=== PATIENT | male | born 1990 | race Caucasian/White ===

== ENCOUNTER 2019-12-25 08:34 | Emergency (ER) | payer OTHER, SELFPAY ==
--- NOTE | 2019-12-25 08:48 | ED.ABDPAIN ---
HPI - Abdominal Pain General Chief Complaint: Abdominal Pain Stated Complaint: abd pain x week, n/v Time Seen by Provider: 12/25/19 08:40 History of Present Illness HPI narrative: Epigastric pain for the past week. crescendo pattern. Usually worst first thing in the in the morning. Associated wiht vomiting. Reports h/o GERD currently untreated. Related Data Allergies Allergy/AdvReac Type Severity Reaction Status Date / Time erythromycin base Allergy Mild Hives Verified 12/25/19 09:01 Review of Systems Review of Systems: All systems reviewed & are unremarkable except as noted in HPI and below Constitutional: Constitutional: Denies fever(s) Cardiovascular: Cardiovascular: Denies chest pain Respiratory: Respiratory: Denies dyspnea Gastrointestinal: Gastrointestinal: Reports abdominal pain, Denies constipation, Denies diarrhea, Reports nausea and Reports vomiting Genitourinary: Genitourinary: Denies dysuria [facility] Social History Social History Alcohol intake: never Gender identity (if verbalized by the patient): Male Exam Const: General: healthy appearing, no acute distress and alert Orientation/consciousness: patient oriented x3 HENMT: Head: normal to inspection Neck: Neck: normal visual inspection and no lymphadenopathy Chest: Chest palpation & inspection: no tenderness Resp: Effort & Inspection: normal respiratory effort Auscultation: clear to auscultation bilaterally, no rales, no rhonchi and no wheezes Cardio: Jugular venous distension: no JVD Rate: regular rate Rhythm: regular rhythm Heart sounds: no murmurs GI: Inspection: non-distended GI Palp: Yes Soft to palpation and No Tenderness to palpation present (GI) Skin: General skin exam: normal color Neuro: General: patient oriented x3 and moves all extremities Speech: normal speech Extrem: General: no edema Psych: Appearance: well kempt Affect: normal affect Course Vital Signs Vital signs: Vital Signs Temperature 36.8 C 12/25/19 08:56 Pulse Rate 71 12/25/19 08:56 Respiratory Rate 16 12/25/19 08:56 Blood Pressure 129/70 12/25/19 08:56 Pulse Oximetry 98 12/25/19 08:56 Temperature 36.8 C 12/25/19 08:56 Pulse Rate 64 12/25/19 12:35 Respiratory Rate 18 12/25/19 12:35 Blood Pressure 146/88 H 12/25/19 12:44 Pulse Oximetry 98 12/25/19 12:35 MDM - Abdominal Pain MDM Narrative Medical decision making narrative: Feeling better after fluids and PPI. Will start PPI at home and have him follow-up. Medical Records Attestation: I reviewed the patient's medical records. Lab Data Attestation: I reviewed the patient's lab results. Result diagrams: 12/25/19 09:11 12/25/19 09:11 Labs: Lab Results 12/25/19 12/25/19 12/25/19 Range/Units 09:11 09:11 09:11 WBC 9.9 (4.5-10.0) K/mm3 RBC 5.49 (4.6-6.20) M/mm3 Hgb 16.2 (14.0-18.0) g/dL Hct 46.3 (42.0-52.0) % MCV 84.3 (80-100) fl MCH 29.5 (26-34) pg MCHC 35.0 (32-36) g/dl RDW 12.8 (11.5-14.5) % Plt Count 275 (150-375) k/mm3 MPV 9.6 (7.4-10.4) fl Immature Gran % (Auto) 0.5 (0-0.5) % Neut % (Auto) 63.8 (45.5-73.1) % Lymph % (Auto) 27.2 (18.3-44.2) % Burt % (Auto) 5.7 (2.6-8.5) % Eos % (Auto) 2.3 (0-4.4) % Baso % (Auto) 0.5 (0.2-1.2) % Lymph # (Auto) 2.68 (0.9-3.2) K/mm3 Burt # (Auto) 0.6 (0.1-0.6) K/mm3 Eos # (Auto) 0.2 (0-0.3) K/mm3 Baso # (Auto) 0.1 (0.0-0.1) K/mm3 Abs Immat Gran (auto) 0.05 H (0.00-0.031) K/mm3 Absolute Neuts (auto) 6.3 (1.3-6.7) K/mm3 Absolute Nucleated RBC 0.0 (0.0-0.012) K/mm3 Nucleated RBC % 0.0 (0.0-0.2) % Sodium 139 (137-145) mmol/L Potassium 4.3 (3.4-5.0) mmol/L Chloride 105 (98-107) mmol/L Carbon Dioxide 26 (22-30) mmol/L BUN 20 (9-20) mg/dL Creatinine 1.10 (0.7-1.3) mg/dL Estim Creat Clear Calc
[2019-12-25 08:56] VITALS: BP 129/70; PULSE 71; RESP 16; TEMP 36.8; O2SAT 98
[2019-12-25 09:20] LABS: Basophils Absolute Auto 0.1 K/mm3 (0.0-0.1); Basophils Percent Auto 0.5 % (0.2-1.2); Eosinophils Absolute Auto 0.2 K/mm3 (0-0.3); Eosinophils Percent Auto 2.3 % (0-4.4); Hematocrit 46.3 % (42.0-52.0); Hemoglobin 16.2 g/dL (14.0-18.0); Immature Granulocyte Absolute 0.05 K/mm3 (0.00-0.031); Immature Granulocyte Percent A 0.5 % (0-0.5); Lymphocytes Absolute Auto 2.68 K/mm3 (0.9-3.2); Lymphocytes Percent Auto 27.2 % (18.3-44.2); Mean Corpuscular Hemoglobin 29.5 pg (26-34); Mean Corpuscular Volume 84.3 fl (80-100); Mean Platelet Volume 9.6 fl (7.4-10.4); Monocytes Absolute Auto 0.6 K/mm3 (0.1-0.6); Monocytes Percent Auto 5.7 % (2.6-8.5); Neutrophils Absolute Auto 6.3 K/mm3 (1.3-6.7); Neutrophils Percent Auto 63.8 % (45.5-73.1); Platelet Count Result 275 k/mm3 (150-375); Red Blood Count 5.49 M/mm3 (4.6-6.20); Red Cell Distribution Width 12.8 % (11.5-14.5); White Blood Count 9.9 K/mm3 (4.5-10.0)
[2019-12-25 09:24] LABS: Add Urine Microscopic? NO; Appearance Urine Clear (Clear); Bilirubin Urine Negative (Negative); Blood Urine Negative (Negative); Color Urine Yellow (Yellow); Glucose Urine UA Negative (Negative); Ketones Urine Negative (Negative); Leukocyte Esterase Ur Negative LEU/UL (Negative); Nitrate Urine Negative (Negative); Protein Urine Negative (Negative); Specific Grav Ur 1.024 (1.001-1.035); Urobilinogen Urine Negative mg/dL (<2.0)
[2019-12-25 09:32] LABS: Alanine Aminotransferase 43 U/L (4-50); Albumin Level 4.7 g/dL (3.5-5.1); Alkaline Phosphatase 69 U/L (38-126); Aspartate Amino Transferase 38 U/L (17-59); Bilirubin,Total 1.1 mg/dL (0.2-1.3); Blood Urea Nitrogen 20 mg/dL (9-20); Calcium 9.6 mg/dL (8.4-10.2); Carbon Dioxide 26 mmol/L (22-30); Chloride 105 mmol/L (98-107); Estimated CRCL calculation 94 ml/min; Estimated Glomerular Filt Rate > 60; Glucose 101 mg/dL (75-110); Lipase 67 U/L (23-300); Potassium 4.3 mmol/L (3.4-5.0); Sodium 139 mmol/L (137-145)
[2019-12-25] MEDS: PANTOPRAZOLE SODIUM IV 40 MG VIAL IV PUSH (09:48)
[2019-12-25] MEDS: SODIUM CHLORIDE 0.9% IV 1,000 ML 999 ML IV CONT (09:48)
[2019-12-25 10:45] VITALS: BP 143/84; PULSE 74; RESP 18; O2SAT 99
[2019-12-25 12:35] VITALS: BP 146/88; PULSE 64; RESP 18; O2SAT 98
[2019-12-25 12:44] VITALS: BP 146/88
== END 2019-12-25 12:46 | disposition home or self-care (01) ==
PROVIDERS: Emergency Provider Emergency Medicine
DX: R10.13 Epigastric pain (principal)
CPT/HCPCS: 36415; 80053; 81003; 83690; 85025; 96361; 96374; 99284; C9113; J7030

== ENCOUNTER 2020-09-22 04:03 | Emergency (ER) | payer SELFPAY ==
[2020-09-22 04:07] VITALS: BP 132/73; PULSE 63; RESP 20; TEMP 36.1; O2SAT 96
[2020-09-22] MEDS: HYDROcodone/acetaminophen (*CRX) 5-325 MG TABLET 1 TAB PO (04:55)
[2020-09-22 05:14] LABS: Add Urine Microscopic? NO; Appearance Urine Clear (Clear); Bilirubin Urine Negative (Negative); Blood Urine Negative (Negative); Color Urine Yellow (Yellow); Glucose Urine UA Negative (Negative); Ketones Urine Negative (Negative); Leukocyte Esterase Ur Negative LEU/UL (Negative); Nitrate Urine Negative (Negative); Protein Urine Negative (Negative); Urobilinogen Urine Negative mg/dL (<2.0)
--- NOTE | 2020-09-22 05:44 | ED.BACK ---
HPI - Back Pain/Injury General Chief Complaint: Back Pain/Injury Stated Complaint: Lower back pain Time Seen by Provider: 09/22/20 04:39 Source: RN notes reviewed History of Present Illness HPI Narrative: Patient presents to emergency department from home for back pain. Patient states that he woke with sleep with pain in his left lower back. States that the pain is described as a tightness and does not radiate pain is worse with movement. States he did have one episode of nausea vomiting with the symptoms. States he took no medication for the pain. He denies any direct trauma or injury. Denies any fevers or chills chest pain shortness of breath abdominal pain or any other symptoms Related Data Allergies Allergy/AdvReac Type Severity Reaction Status Date / Time erythromycin base Allergy Mild Hives Verified 09/22/20 04:09 Review of Systems Review of Systems: Narrative: Gen.: Denies fevers or chills ENT: Denies congestion Respiratory: Denies shortness of breath or cough CV: Denies chest pain or palpitations GI: Denies abdominal pain rest 1 episode nausea vomiting denies burning, urgency, frequency or hematuria Musculoskeletal: See HPI Neuro: Denies numbness, tingling, weakness or focal weakness Skin: Denies rash Except as documented, all other systems reviewed and negative PMFSH Past Medical History Medical History (Updated 09/22/20 @ 05:46 by Sanya Pool DO) Patient denies significant medical history Social History Social History (Updated 09/22/20 @ 05:45 by Sanya Pool DO) Smoking status: Never smoker Alcohol intake: never Gender identity (if verbalized by the patient): Male Exam Narrative: Exam Narrative: APPEARANCE: No acute distress, nontoxic, resting in bed Eyes: EOMI HEENT: Normocephalic, atraumatic, CV: Regular rate and rhythm without murmur RESPIRATORY: No respiratory distress. Clear to auscultation bilaterally. Abdomen: Soft and nontender, no rebound or guarding MUSCULOSKELETAl: Moves all extremities, no clubbing cyanosis or edema Back: No midline lumbar tenderness to palpation or step-off, tender to palpation over left paravertebral muscles L2-4 , pain increased with forward flexion rotation of the torso NEURO: Awake and alert. Following commands, speech normal, no focal deficits, muscle strength 5 out of 5 bilateral lower extremities, bilateral patellar reflex 2+ SKIN:: Warm, dry. Normal Color no rash or lesions Course Course Emergency Course: Discussed with patient results of workup and diagnosis. Discussed need for follow-up with primary care, proper use of medication, and reasons to return to the emergency department. Patient understands and agrees to current treatment plan Vital Signs Vital signs: Vital Signs Temperature 97.0 F L 09/22/20 04:07 Pulse Rate 63 09/22/20 04:07 Respiratory Rate 20 09/22/20 04:07 Blood Pressure 132/73 09/22/20 04:07 Pulse Oximetry 96 09/22/20 04:07 Temperature 97.0 F L 09/22/20 04:07 Pulse Rate 63 09/22/20 04:07 Respiratory Rate 20 09/22/20 04:07 Blood Pressure 132/73 09/22/20 04:07 Pulse Oximetry 96 09/22/20 04:07 MDM - Back Pain/Injury MDM Narrative Medical decision making narrative: Patient?s pain is positional and localized to back without signs of cord compression or cauda equina. Normal nuerologic exams. No fever noted and no significant risk factors for osteomyelitis or spinal epidural abscess. No symptoms or signs to suggest pain is referred from abdominal or source. There are no pulsatile masses to exam. Patient ambulates with a steady gait and is felt to be up reasonable candidate for continued outpatient management Lab Data Labs: Lab Results 09/22/20 Range/Units 05:02 Urine Color Yellow (Yellow) Urine Appearance Clear (Clear) Urine pH 5.0 (5.0-9.0) Ur Specific [place] 1.020 (1.001-1.035) Urine Protein Negative (Negative) mg/dL Urine Glucose (UA) Negative (Nega
[2020-09-22 05:50] VITALS: BP 128/62; PULSE 66; RESP 18; O2SAT 97
== END 2020-09-22 05:50 | disposition home or self-care (01) ==
PROVIDERS: Emergency Provider Emergency Medicine; PCP Student in an Organized Health Care Education/Training Program
DX: M54.5 Low back pain (principal)
CPT/HCPCS: 81003; 99283; A9270

== ENCOUNTER → 2020-11-25 13:13 | Outpatient (CLI) | payer OTHER, SELFPAY ==
--- NOTE | ~2020-11-25 | US_ITS ---
EXAMINATION: US soft tissue head and neck EXAM DATE: 11/25/2020 13:54 INDICATION: Swollen lymph nodes. Palpable abnormality sides of neck. TECHNIQUE: Multiple grayscale and Doppler images of the symptomatic region were obtained (by a techno logist who performed the scan) and subsequently reviewed. There is no prior study for comparison. FINDINGS: Scanning in the area of patient's concern upper aspects of neck laterally demonstrates normal appeari ng subcutaneous fat and under spine sternocleidomastoid. No cervical lymphadenopathy in the region. IMPRESSION: 1. Unremarkable ultrasound exam. Reviewed, dictated and finalized at location B.
--- NOTE | ~2020-11-25 | US_ITS ---
US scrotum doppler INDICATION: Left testicular pain TECHNIQUE: Testicular sonogram utilizing grayscale and color Doppler FINDINGS: The testes are normal in size and appearance. No focal lesions are seen. The right testes measures 4.4 x 2.6 x 3.9 cm centimeters, and the left testis measures 4.2 x 2.4 x 2.9 cm cm. There is normal vascular flow to both testes. There is a 2 mm right epididymal cysts. There is a small right hydrocele. There is a small left hydrocele. There is a left varicocele. IMPRESSION: 1. Left varicocele. 2: Small bilateral hydroceles. Reviewed, dictated and finalized at location A.
== END ==
PROVIDERS: PCP Student in an Organized Health Care Education/Training Program; Visit Provider Student in an Organized Health Care Education/Training Program
DX: R59.9 Enlarged lymph nodes, unspecified (principal); N50.819 Testicular pain, unspecified
CPT/HCPCS: 76536; 76870; 93976

== ENCOUNTER 2020-12-19 09:12 | Emergency (ER) | payer OTHER, SELFPAY ==
--- NOTE | ~2020-12-19 | XR_ITS ---
XR chest 2V DATE: 12/19/2020 09:39 INDICATION: Shortness of breath. Anxiety/panic attack TECHNIQUE: PA and lateral views COMPARISON: 02/25/2016 PA and lateral chest FINDINGS: Normal heart size. No hilar or mediastinal enlargement. The lungs appear normally inflated and clear of infiltrate or consolidation. No pleural effusion or pulmonary vascular congestion or pne umothorax. Included skeletal structures appear normal. IMPRESSION: Negative chest Reviewed, dictated and finalized at location A. IMPRESSION: Negative chest
[2020-12-19 09:23] VITALS: BP 152/95; PULSE 80; RESP 16; TEMP 36.6; O2SAT 100
--- NOTE | 2020-12-19 09:27 | ECG_ITS ---
Measurements Intervals [place] Rate: 85 P: 59 VT: 116 QRS: 67 QRSD: 89 T: 39 QT: 371 QTc: 444 Interpretive Statements SINUS RHYTHM WITH SHORT VT INTERVAL VOLTAGE CRITERIA FOR LVH ST ELEVATION IN ANTEROLAT/HIGH LAT LEADS- PROBABLY EARLY REPOLARIZATION ABNORMALITY BORDERLINE ST-T WAVE ABNORMALITY- INFERIOR LEADS BASELINE ARTIFACT- V1 BORDERLINE ECG Electronically Signed On 12-19-2020 10:09:01 CDT by Bob Cuadra D.O.
[2020-12-19] MEDS: ALPRAZolam (*CRX) 0.25 MG TABLET 0.5 MG PO (10:00)
--- NOTE | 2020-12-19 10:27 | ED.ANXIETY ---
HPI - Anxiety General Chief Complaint: Anxiety Stated Complaint: was taking antibiotics, it's causing me anxiety Time Seen by Provider: 12/19/20 09:27 History of Present Illness HPI narrative: Patient is a 30-year-old male who presents ER with chest tightness. Patient has history of anxiety for which she takes alprazolam. Reports tightness began earlier today and is making him short of breath. No exertional pain.. 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 He is supposed to take it twice a day but has been taking it daily instead. He was referred here by his PCP. Denies fevers or chills or sweats. No testicle pain or dysuria or flank pain. Has had similar symptoms like this when he has had a panic attack in the past. Related Data Home Medications Medication Instructions Recorded Confirmed alprazolam 0.5 mg PO PRN 12/19/20 12/19/20 Allergies Allergy/AdvReac Type Severity Reaction Status Date / Time erythromycin base Allergy Mild Hives Verified 12/19/20 09:43 Review of Systems Review of Systems: All systems reviewed & are unremarkable except as noted in HPI and below Constitutional: Constitutional: Denies chills, Denies fever(s) and Denies weakness ENT: Denies nasal congestion Cardiovascular: Cardiovascular: Reports chest pain, Reports rapid heart rate and Denies radiating jaw, neck or arm pain Respiratory: Respiratory: Denies cough, Reports dyspnea and Denies wheezing Gastrointestinal: Gastrointestinal: Denies nausea and Denies vomiting PMFSH Past Medical History Medical History (Updated 12/19/20 @ 10:32 by David Feldman MD) Anxiety History of benign testicular tumor Social History Social History (Updated 09/22/20 @ 05:45 by Sanya Pool DO) Smoking status: Never smoker Alcohol intake: never Gender identity (if verbalized by the patient): Male Exam Narrative: Exam Narrative: GENERAL: Anxious-appearing, well-nourished, and in no acute distress. HEAD: Normocephalic, atraumatic. CHEST: Clear to auscultation. No respiratory distress. HEART: Regular rate and rhythm. Normal peripheral pulses. ABDOMEN: Soft, nontender, nondistended. EXTREMITIES: Normal range of motion. No edema. SKIN: Warm, dry, no rash. NEURO: Alert and oriented x3. PSYCH: Anxious mood with normal thought content. Course Course Emergency Course: Patient feels much better with Xanax. Reports has [place] father dying 7 months ago. He has been placed on antidepressant as well as anxiety medication. Discussed that seeing a therapist as well may benefit him as he finds bottling up his emotions tends to make things worse Vital Signs Vital signs: Vital Signs Temperature 97.9 F 12/19/20 09:23 Pulse Rate 80 12/19/20 09:23 Respiratory Rate 16 12/19/20 09:23 Blood Pressure 152/95 H 12/19/20 09:23 Pulse Oximetry 100 12/19/20 09:23 Temperature 97.9 F 12/19/20 09:23 Pulse Rate 80 12/19/20 09:23 Respiratory Rate 16 12/19/20 09:23 Blood Pressure 152/95 H 12/19/20 09:23 Pulse Oximetry 100 12/19/20 09:23 MDM - Anxiety Imaging Data Radiologist's impression: ITS Impressions Chest X-Ray 12/19/20 09:41 IMPRESSION: Negative chest ECG Data EKG #1: ECG completion date: 12/19/20 ECG completion time: 09:56 EKG Interpretation: normal rate (85), sinus rhythm, no ectopy, non-specific ST changes, normal QRS, normal QT, NL axis and other (lvh) Discharge Plan Discharge Clinical Impression: Acute anxiety Patient Disposition: Home, Self-Care Condition: Stable Instructions: Anxiety (ED) Additional Instructions: Return to the ER if you have recurrent chest pain or shortness of breath, you lose consciousness, you cannot keep down food or water, you have additional concerns. Talking with your primary care physician about your anxiety may lead them to add
[2020-12-19 10:55] VITALS: BP 138/88; PULSE 78; RESP 20; O2SAT 100
== END 2020-12-19 11:00 | disposition home or self-care (01) ==
PROVIDERS: Emergency Provider Emergency Medicine; PCP Student in an Organized Health Care Education/Training Program
DX: F41.9 Anxiety disorder, unspecified (principal); R94.31 Abnormal electrocardiogram [ECG] [EKG]
CPT/HCPCS: 71046; 93005; 99283; A9270

== ENCOUNTER 2021-08-10 10:15 | Emergency (ER) | payer SELFPAY ==
--- NOTE | ~2021-08-10 | XR_ITS ---
XR finger 4th RT min 2V 08/10/2021 11:05 Indication: Right fourth finger pain after injury Procedure: 3 views right fourth finger Comparison: No prior studies for comparison. Findings: There are linear foreign bodies in the soft tissues overlying the tuft of the distal phalan x. No underlying fracture or traumatic malalignment. Mild diffuse soft tissue swelling. Impression: 1: No acute fracture. 2: Linear soft tissue foreign bodies distal to the distal phalanx. Reviewed, dictated and finalized at location A. [employer] Impression: 1: No acute fracture. 2: Linear soft tissue foreign bodies distal to the distal phalanx.
[2021-08-10 10:36] VITALS: BP 129/90; PULSE 68; RESP 18; TEMP 36.3; O2SAT 100
--- NOTE | 2021-08-10 11:20 | ED.UPPEXIN ---
HPI - Extremity Injury (Upper) General Chief Complaint: Extremity Injury, Upper Stated Complaint: finger pain Time Seen by Provider: 08/10/21 10:33 History of Present Illness HPI narrative: 31-year-old male presents the emergency room with complaints of right fourth digit finger pain status post mechanical fall down 4 stairs. States injury occurred yesterday, noticed the finger was dislocated and was able to reduce it. Finger pain is worse with movement. Has not taking any Tylenol or ibuprofen for discomfort. Upon arrival patient's finger is splinted. Related Data Home Medications Medication Instructions Recorded Confirmed alprazolam 0.5 mg PO PRN 12/19/20 12/19/20 Allergies Allergy/AdvReac Type Severity Reaction Status Date / Time erythromycin base Allergy Mild Hives Verified 12/19/20 09:43 Review of Systems Review of Systems: CONSTITUTIONAL: Denies fever, chills, or sweats. EYES: Denies visual changes, redness, or discharge. ENT: Denies rhinorrhea, congestion, sore throat, or otalgia. CARDIOVASCULAR: Denies chest pain, palpitations, or edema. RESPIRATORY: Denies cough or dyspnea. GASTROINTESTINAL: Denies abdominal pain, nausea, vomiting, or diarrhea. GENITOURINARY: Denies dysuria or hematuria. SKIN: Denies rash or itching. MUSCULOSKELETAL: Denies back pain, joint pain, or myalgia. Right fourth finger pain NEUROLOGIC: Denies headache, numbness, dizziness, or weakness. PSYCHIATRIC: Denies anxiety or depression. [facility] Past Medical History Medical History Anxiety History of benign testicular tumor Social History Social History Smoking status: Never smoker Alcohol intake: never Gender identity (if verbalized by the patient): Male Exam Narrative: GENERAL: Well-appearing, well-nourished, and in no acute distress. HEAD: Normocephalic, atraumatic. EYES: PERRLA and EOMI. ENT: Nares clear, no rhinorrhea or epistaxis. Mucous membranes moist. Oropharynx without tonsillar hypertrophy exudate or other lesions. Bilateral TMs [place] nonbulging NECK: Supple. No adenopathy or masses. No carotid bruits or JVD CHEST: Clear to auscultation. No respiratory distress. No wheezes rales or rhonchi HEART: Regular rate and rhythm. No murmur heard. Normal peripheral pulses. ABDOMEN: Soft, nontender, nondistended, normal active bowel sounds. EXTREMITIES: Right fourth finger: Tenderness to the PIP joint, with soft tissue swelling, no obvious bony abnormality, pain with flexion neurovascular distally intact injury. SKIN: Warm, dry, no rash. NEURO: No focal deficits. Alert and oriented x3. PSYCH: Normal mood and affect. Course Vital Signs Vital signs: Vital Signs Temperature 36.3 C L 08/10/21 10:36 Pulse Rate 68 08/10/21 10:36 Respiratory Rate 18 08/10/21 10:36 Blood Pressure 129/90 08/10/21 10:36 Pulse Oximetry 100 08/10/21 10:36 Temperature 36.3 C L 08/10/21 10:36 Pulse Rate 68 08/10/21 10:36 Respiratory Rate 18 08/10/21 10:36 Blood Pressure 129/90 08/10/21 10:36 Pulse Oximetry 100 08/10/21 10:36 Discharge Plan Discharge Clinical Impression: Sprain of finger of right hand Qualifiers: Encounter type: initial encounter Finger: ring finger Sprain of finger site: interphalangeal joint Qualified Code(s): S63.634A - Sprain of interphalangeal joint of right ring finger, initial encounter Patient Disposition: Home, Self-Care Condition: Stable Instructions: Antibiotic Form Additional Instructions: Keep finger in splint for next week. Recommend buying a tennis ball and squeezing tennis ball for 10 minutes at a time. Tylenol and ibuprofen as needed for pain if pain continues in the next 1 to 2 weeks follow-up with orthopedics. Prescriptions: No Action alprazolam 0.5 mg tablet 0.5 mg PO PRN RF: 0 omeprazole 20 mg capsule,delayed release(DR/EC) 20 mg PO
[2021-08-10 11:41] VITALS: PULSE 80; RESP 18; O2SAT 99
== END 2021-08-10 11:43 | disposition home or self-care (01) ==
PROVIDERS: Emergency Provider Nurse Practitioner Family; PCP Student in an Organized Health Care Education/Training Program
DX: S63.634A Sprain of interphalangeal joint of right ring finger, initial encounter (principal); F41.9 Anxiety disorder, unspecified; W10.9XXA Fall (on) (from) unspecified stairs and steps, initial encounter
CPT/HCPCS: 73140; 99283

== ENCOUNTER 2021-12-05 14:38 | Emergency (ER) | payer OTHER, SELFPAY ==
[2021-12-05 14:48] VITALS: BP 120/52; PULSE 76; RESP 16; TEMP 36.4; O2SAT 97
--- NOTE | 2021-12-05 15:38 | ED.GENADULT ---
HPI - General Adult General Chief complaint: Eye Problems Stated complaint: something in eye Time Seen by Provider: 12/05/21 15:14 History of Present Illness HPI narrative: 31-year-old male presented emerged department for evaluation of a foreign body in his left eye. 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 Patient states he was able to get the leonor out but still had a residual spot in the eye. Patient denies any eye pain, denies any foreign body sensation denies any change in vision. The speck in the eye is just medial of the left cornea and is in the sclera. Related Data Home Medications Medication Instructions Recorded Confirmed alprazolam 0.5 mg tablet 0.5 mg PO PRN 12/19/20 12/19/20 Allergies Allergy/AdvReac Type Severity Reaction Status Date / Time erythromycin base Allergy Mild Hives Verified 12/05/21 15:08 Review of Systems Review of Systems: CONSTITUTIONAL: Denies fever, chills, or sweats. EYES: See HPI ENT: Denies rhinorrhea, congestion, sore throat, or otalgia. CARDIOVASCULAR: Denies chest pain, palpitations, or edema. RESPIRATORY: Denies cough or dyspnea. GASTROINTESTINAL: Denies abdominal pain, nausea, vomiting, or diarrhea. GENITOURINARY: Denies dysuria or hematuria. SKIN: Denies rash or itching. MUSCULOSKELETAL: Denies back pain, joint pain, or myalgia. NEUROLOGIC: Denies headache, numbness, or weakness. PMFSH Past Medical History Medical History Anxiety History of benign testicular tumor Social History Social History Smoking status: Never smoker Alcohol intake: never Gender identity (if verbalized by the patient): Male Exam Narrative: APPEARANCE: Well appearing, no pain, no distress, well-nourished. HEAD: normocephalic, atraumatic. EYES: PERRLA/EOMI, conjunctivae clear. No fluorescein uptake. On slit-lamp exam patient does have a residual rust ring just medial to the cornea NOSE: Normal no drainage NECK: Supple. No adenopathy, no masses. RESPIRATORY: Airway patent, respirations nonlabored. Clear to auscultation bilaterally, no rales, rhonchi, wheezing. CARDIOVASCULAR: Regular rate and rhythm without murmurs rubs or gallops. NEURO: Alert. Cranial nerves II through XII intact. Grossly intact SKIN: Warm, dry. Normal Color PSYCHIATRIC: Normal affect/mood. Course Vital Signs Vital signs: Vital Signs Temperature 97.5 F L 12/05/21 14:48 Pulse Rate 76 12/05/21 14:48 Respiratory Rate 16 12/05/21 14:48 Blood Pressure 120/52 L 12/05/21 14:48 Pulse Oximetry 97 12/05/21 14:48 Oxygen Delivery Room Air 12/05/21 14:48 Temperature 97.5 F L 12/05/21 14:48 Pulse Rate 76 12/05/21 14:48 Respiratory Rate 16 12/05/21 14:48 Blood Pressure 120/52 L 12/05/21 14:48 Pulse Oximetry 97 12/05/21 14:48 Oxygen Delivery Room Air 12/05/21 14:48 Medical Decision Making Vital Signs Vital Signs: Vital Signs Temperature 97.5 F L 12/05/21 14:48 Pulse Rate 76 12/05/21 14:48 Respiratory Rate 16 12/05/21 14:48 Blood Pressure 120/52 L 12/05/21 14:48 Pulse Oximetry 97 12/05/21 14:48 Oxygen Delivery Room Air 12/05/21 14:48 Temperature 97.5 F L 12/05/21 14:48 Pulse Rate 76 12/05/21 14:48 Respiratory Rate 16 12/05/21 14:48 Blood Pressure 120/52 L 12/05/21 14:48 Pulse Oximetry 97 12/05/21 14:48 Oxygen Delivery Room Air 12/05/21 14:48 Discharge Plan Discharge Clinical Impression: Corneal rust ring of left eye Patient Disposition: Home, Self-Care Condition: Stable Instructions: Antibiotic Form, Eye Foreign Body (ED) Additional Instructions: Antibiotic solution for the left eye as directed. Have close follow-up with ophthalmology. [facility] at [phone]. Prescriptions: New ciprofloxacin HCl 0.3 % drops
[2021-12-05] MEDS: CIPROFLOXACIN HCL 0.3% OP SOLN 2.5 ML BTL 1 DROP LEFT EYE (16:02)
== END 2021-12-05 16:12 | disposition home or self-care (01) ==
PROVIDERS: Emergency Provider Emergency Medicine; PCP Student in an Organized Health Care Education/Training Program
DX: T15.02XA Foreign body in cornea, left eye, initial encounter (principal); F41.9 Anxiety disorder, unspecified
CPT/HCPCS: 99283; A9270